=== PATIENT | female | born 1985 | race Hispanic/Latino ===

== ENCOUNTER 2018-08-13 17:18 | Observation (INO) | payer MEDICAID ==
[~2018-08-13 17:18] MED LIST: PREN1TAB80 PO
[2018-08-13 17:56] LABS: APPEARANCE,URINE Clear (CLEAR); BILIRUBIN,URINE Negative (NEGATIVE); COLOR,URINE Yellow (YELLOW); GLUCOSE, URINE (UA) Negative (NEGATIVE); KETONES,URINE >=80 mg/dL (NEGATIVE); LEUKOCYTE ESTERASE ,URINE Trace (NEGATIVE); NITRATE,URINE Negative (NEGATIVE); OCCULT BLOOD,URINE Negative (NEGATIVE); PH,URINE 5.5 (5.0-8.0); PROTEIN,URINE Negative (NEGATIVE)
[2018-08-13 18:46] LABS: BACTERIA,URINE Rare /HPF (None Seen); RBC,URINE 0-1 /HPF (0-1); SQUAMOUS EPITHELIAL CELL,UR Few /HPF (0-2)
== END 2018-08-13 18:52 | disposition home or self-care (01) ==
LOC: EDH 17:18 → LDH 17:19
PROVIDERS: ADMIT Obstetrics & Gynecology; ATTEND Obstetrics & Gynecology
DX: O10.912 Unspecified pre-existing hypertension complicating pregnancy, second trimester (principal); O26.892 Other specified pregnancy related conditions, second trimester; R10.32 Left lower quadrant pain; Z3A.22 22 weeks gestation of pregnancy
CPT/HCPCS: 81001; 99284; G0378 ×2

== ENCOUNTER 2018-12-08 09:51 | Inpatient (IN) | payer MEDICAID | END 2018-12-09 15:55 | disposition home or self-care (01) | LOC: LDH 09:51 → WSH 16:36 | PROC: 10E0XZZ Delivery of Products of Conception, External Approach (ICD-10-PCS; principal; ~2018-12-08) | DX: O99.02 Anemia complicating childbirth (principal); Z37.0 Single live birth; Z3A.38 38 weeks gestation of pregnancy ==

== ENCOUNTER 2019-01-31 05:30 | Day surgery (SDC) | payer MEDICAID ==
[2019-01-30 16:56] VITALS: BP 115/66
[2019-01-30 17:01] LABS: BASOPHILS % (AUTO) 0.4 % (0.0-5.0); EOSINOPHILS % (AUTO) 1.4 % (0.0-8.0); HEMATOCRIT 36.9 % (36-48); LYMPHOCYTES % (AUTO) 17.4 % (21.0-51.0); MEAN CORPUSCULAR HEMOGLOBIN 24.9 pg (27.0-33.0); MEAN CORPUSCULAR HGB CONC 31.6 g/dL (32.0-36.0); MEAN CORPUSCULAR VOLUME 78.7 fL (79-99); MONOCYTES % (AUTO) 5.5 % (3.0-13.0); NEUTROPHILS % (AUTO) 75.3 % (40.0-77.0); PLATELET COUNT (AUTO) 235 K/uL (130-400); RED BLOOD CELL COUNT(AUTO) 4.69 MIL/uL (4.00-5.50); RED CELL DISTRIBUTION WIDTH 22.3 % (11.0-15.5); WHITE BLOOD COUNT (AUTO) 8.9 K/uL (4.8-10.8)
[~2019-01-31] VITALS: Ht 162.6 cm; Wt 70.9 kg
[2019-01-31] VITALS (18 sets, daily range): BP systolic 98–111; BP diastolic 52–75
[2019-01-31] MEDS ORDERED: LACTATED RINGERS 1000ML 1,000 ML IV ONE (06:04)
[2019-01-31] MEDS ORDERED: ROCURONIUM 10MG/1ML SYR 10 MG/ML ML ONE (07:52)
[2019-01-31] MEDS ORDERED: FENTANYL CITRATE PF 50 MCG/1 ML 2ML VIAL ONE (07:52)
[2019-01-31] MEDS ORDERED: LIDOCAINE PF 2% 5ML ABBOJECT ONE (07:52)
[2019-01-31] MEDS ORDERED: PROPOFOL 10 MG/ML 20ML VIAL IV ONE (07:52)
[2019-01-31] MEDS ORDERED: MIDAZOLAM HCL 1 MG/ML 2ML VIAL ONE (07:52)
[2019-01-31] MEDS ORDERED: ONDANSETRON HCL 4 MG/2 ML VIAL ONE (07:53)
[2019-01-31] MEDS ORDERED: LACTATED RINGERS 1000ML 1,000 ML IV SCH (08:00)
[2019-01-31] MEDS ORDERED: GLYCOPYRROLATE 1 MG/5 ML SYRINGE ONE (08:24)
[2019-01-31] MEDS ORDERED: DEXAMETHASONE SOD PHOSPHATE 10MG/ML 1ML VIAL ONE (08:24)
[2019-01-31] MEDS ORDERED: NEOSTIGMINE 5MG/5ML SYR IV ONE (08:37)
[2019-01-31] MEDS ORDERED: KETOROLAC TROMETHAMINE 30MG/ML ONE (09:01)
[2019-01-31] MEDS ORDERED: MEPERIDINE-PF 25 MG/ML SYG ONE ×2 (09:07→09:18)
--- NOTE | 2019-01-31 09:55 | NUR ---
ASSESSMENT RECEIVED PT FROM PACU STAFF RAZ RN. PT AAOX3. ABD SOFT TO TOUCH. BS X4 PRESENT. BAND AID X2 TO ABD DRY AND INTACT. SAVANNA PAD IN PLACE. NO BLEEDING NOTED.
--- NOTE | 2019-01-31 10:45 | NUR ---
DISCHARGE ORAL AND WRITTEN DISCHARGE INSTRUCTIONS GIVEN TO PT AND PTS MOTHER ALONG WITH PRESCRIPTION. INSTRUCTIONS GIVEN TO FOLLOW POST OP INSTRUCTIONS. BOTH VERBALIZED UNDERSTANDING.
== END 2019-01-31 10:48 | disposition home or self-care (01) ==
LOC: DAH 05:30
PROVIDERS: ATTEND Obstetrics & Gynecology
DX: Z30.2 Encounter for sterilization (principal); D25.9 Leiomyoma of uterus, unspecified; Z90.49 Acquired absence of other specified parts of digestive tract; Z82.49 Family history of ischemic heart disease and other diseases of the circulatory system; Z83.3 Family history of diabetes mellitus
CPT/HCPCS: 36415; 58670; 84703; 85025; 86850; 86900; 86901; A4215; A4351; A4452; A4606; A4930; C1769 ×2; J1100; J1885; J2001; J2175 ×2; J2250; J2405; J2704; J2710; J3010; J3490; J7120

== ENCOUNTER 2023-05-22 14:38 | Emergency (ER) | payer BC, MEDICAID ==
[~2023-05-22] VITALS: Ht 160 cm; Wt 68.0 kg
[2023-05-22 16:23] VITALS: BP 128/80; PULSE 100; RESP 18
[2023-05-22] MEDS ORDERED: KETOROLAC 30MG VIAL (30MG/ML) ONE (18:24)
[2023-05-22] MEDS ORDERED: KETOROLAC 60 MG VIAL (30MG/ML) IM ONE (18:30)
== END 2023-05-22 21:17 | disposition left against medical advice (07) ==
LOC: EDH 14:38
DX: R22.0 Localized swelling, mass and lump, head (principal); Z53.21 Procedure and treatment not carried out due to patient leaving prior to being seen by health care provider
CPT/HCPCS: J1885